=== PATIENT | female | born 1965 | race Caucasian/White ===

== ENCOUNTER 2021-04-12 16:31 | Outpatient (CLI) | payer BC, SELFPAY ==
--- NOTE | ~2021-04-12 | MR_ITS ---
EXAMINATION: MR shoulder RT wo con DATE: 04/12/2021 17:37 INDICATION: Right shoulder pain. TECHNIQUE: Magnetic resonance imaging (MRI) of the right shoulder was performed without intravenous c ontrast. Sequences included axial PD-weighted FS FSE, coronal oblique PD-weighted FS FSE and T2-weigh reyna FS FSE, and sagittal oblique T2-weighted FS FSE and T1-weighted FSE. COMPARISON: Right shoulder radiographs 07/14/2015 FINDINGS: Coracoacromial arch: The acromion undersurface is curved in morphology (type II). There is severe acromioclavicular joint osteoarthritis. There are changes of acromioplasty. No subacromial/subdeltoid bursitis. Rotator cuff: There is moderate supraspinatus and infraspinatus tendinopathy. There is shallow articular sided fray ing of supraspinatus tendon. Teres minor tendon is normal. There is mild subscapularis tendinopathy. There is no asymmetric fatty atrophy of the rotator cuff muscle bellies. Biceps tendon and glenoid labrum: Biceps tendon is in bicipital groove. There is moderate intra-articular biceps tendinopathy. There is a tear of superior labrum from 9:00 to 2:00 (SLAP tear). Fluid: There is a moderate-sized glenohumeral joint effusion. Bones/cartilage: There is full-thickness cartilage loss of superior glenoid and superior humeral head. IMPRESSION: 1. Moderate rotator cuff tendinopathy with shallow articular-sided fraying of supraspinatus tendon. 2. Severe glenohumeral joint chondrosis. 3. Severe acromioclavicular joint osteoarthritis. 4. Moderate-sized glenohumeral joint effusion. 5. Moderate intra-articular biceps tendinopathy. Reviewed, dictated and finalized at location A. IMPRESSION: 1. Moderate rotator cuff tendinopathy with shallow articular-sided fraying of s upraspinatus tendon. 2. Severe glenohumeral joint chondrosis. 3. Severe acromioclavicular joint osteoarthritis. 4. Moderate-sized glenohumeral joint effusion. 5. Moderate intra-articular biceps tendinopathy.
== END 2021-04-12 16:32 | disposition home or self-care (01) ==
LOC: ANHIMG 16:49
DX: M19.011 Primary osteoarthritis, right shoulder (principal); M25.411 Effusion, right shoulder
CPT/HCPCS: 73221

== ENCOUNTER 2022-02-03 12:36 | Emergency (ER) | payer BC, SELFPAY ==
[2022-02-03 12:51] VITALS: BP 117/71; PULSE 63; RESP 20; TEMP 37; O2SAT 99
--- NOTE | 2022-02-03 13:41 | ED.SKABFB ---
HPI - Skin/Abscess/Foreign Bdy General Chief complaint: Skin/Abscess/Foreign Body Stated complaint: Lower Back Pain,Lesions from Hand Foot and Mouth Source: patient Mode of arrival: ambulatory Limitations: no limitations History of Present Illness HPI narrative: 56-year-old female presents to [facility] with complaints of erythematous painful rash to her bilateral hands, feet and mouth for the past 3 days. Patient reports that she had a fever 4 days ago which is since resolved. Patient reports that her grandson was diagnosed with [id number]-mouth approximately 1 week ago. Patient has been taking her counter ibuprofen, Tylenol and using warm salt water gargles with minimal relief. Patient denies cough, congestion, runny nose, nausea, vomiting or diarrhea. MD complaint: rash Onset (ago): day(s) (3) Location: L hand, R hand, L foot and R foot Quality: burning Associated symptoms: fever Treatments prior to arrival: NSAID Related Data Home Medications Medication Instructions Recorded Confirmed cetirizine 10 mg tablet 10 mg PO DAILY 07/07/19 02/03/22 aspirin 81 mg tablet,delayed 81 mg PO DAILY 02/03/22 02/03/22 release hydrocortisone 2.5 % topical 1 applic topical QID 02/03/22 02/03/22 ointment Allergies Allergy/AdvReac Type Severity Reaction Status Date / Time Sulfa (Sulfonamide Allergy Severe swelling Verified 02/03/22 12:47 Antibiotics) sulfamethizole Allergy Severe Swelling Verified 02/03/22 12:47 of Lip/Tongue/Throat trimethoprim Allergy Severe swelling Verified 02/03/22 12:47 ceftriaxone Allergy Mild high fever Verified 02/03/22 12:47 cefuroxime Allergy Mild high fever Verified 02/03/22 12:47 cephalexin Allergy Mild Swelling Verified 02/03/22 12:47 of Lip/Tongue/Throat Cephalosporins Allergy Mild RASH Verified 02/03/22 12:47 Review of Systems Constitutional: Constitutional: Denies chills, Denies fatigue, Reports fever(s) and Denies weakness ENT: Denies vertigo, Denies dizziness and Denies epistaxis Cardiovascular: Cardiovascular: Denies chest pain Respiratory: Respiratory: Denies chest congestion, Denies cough and Denies dyspnea Gastrointestinal: Gastrointestinal: Denies diarrhea, Denies nausea and Denies vomiting Integumentary/Breasts: Skin/Breast: Denies pruritus and Reports rash Neurologic: Denies dizziness PMFSH Family History Family History Father Hypertension Other Family history of arthritis Social History Social History Smoking status: Never smoker Second hand tobacco smoke exposure: No Alcohol intake: never Substance use: never Comments At time of signature, I agree with nursing past medical, surgical, social and family history. There is no relevant family history pertinent to the presenting complaint. Exam Const: General: healthy appearing Nutritional Appearance: well nourished Orientation/consciousness: patient oriented x3 Limitations: no limitations HENMT: Head: normal to inspection Ears: external ears normal General nose exam: Normal external nose present Face and sinus: normal facial exam Mouth: Yes Abnormal oral and palatal mucosa present other (Vesicular rash noted to hard palate) Teeth and gingiva: dentition normal Throat: uvula midline Resp: Effort & Inspection: normal respiratory effort and not labored Auscultation: clear to auscultation bilaterally and no crackles Cardio: Rate: regular rate Rhythm: regular rhythm Heart sounds: no murmurs Skin: General skin exam: normal color Wounds: no wounds Other: White-colored vesicular/pustular like rash noted to bilateral hands and feet with an erythematous halo noted. Rash likely represents [id number]-mouth Neuro: General: patient oriented x3 Cranial nerves: Yes Nystagmus not present Speech: normal speech Extrem: General: no clubbing, cyanosis or edema and no p
== END 2022-02-03 13:54 | disposition home or self-care (01) ==
PROVIDERS: Emergency Provider Nurse Practitioner Family
DX: B08.4 Enteroviral vesicular stomatitis with exanthem (principal)
CPT/HCPCS: 99213; G0463